=== PATIENT | female | born 1975 | race Two or more races ===

== ENCOUNTER 2024-05-03 14:43 | Inpatient (IN) | payer OTHER ==
[~2024-05-03] VITALS: Ht 175.3 cm; Wt 107.3 kg
[2024-05-03] MEDS ORDERED: SODIUM CHLORIDE 0.9% 1,000 ML IV ONE (15:15)
[2024-05-03] MEDS: SODIUM CHLORIDE 0.9% 1,000 ML IV ONE (15:23)
[2024-05-03] MEDS: ONDANSETRON HCL 4 MG/2 ML VIAL IV ONE ×2 (15:33→20:12)
[2024-05-03] MEDS: KETOROLAC TROMETH 30 MG/ML 1ML VIAL IV ONE (15:33)
[2024-05-03 15:35] LABS: Urine Bacteria FEW /hpf (None Seen); Urine Blood TRACE /uL (Negative); Urine Clarity Clear (Clear); Urine Color Light-Yellow (Yellow); Urine Protein, UAD Negative (Negative); Urine Specific Gravity 1.009 (1.001-1.035); Urine Urobilinogen Normal (Negative); Urine WBC 10 /hpf (0 - 5)
[2024-05-03 15:44] LABS: Basophils # (auto) 0.1 10 ^3/uL (0-0.2); Eosinophils # (auto) 0.2 10 ^3/uL (0-0.8); Eosinophils % (auto) 1.2 % (0.0-7.0); Hemoglobin 13.2 g/dL (12.2-16.2); Lymphocytes # (auto) 2.1 10 ^3/uL (0.4-5.4); Red Blood Cells 5.23 10^6/uL (4.0-5.20)
[2024-05-03 15:45] LABS: Basophils % (auto) 0.4 % (0.0-2.0); Hematocrit 41.7 % (36.0-46.0); Lymphocytes % (auto) 12.2 % (10.0-50.0); Mean Corpuscular Hemoglobin 25.3 pg (28.0-32.0); Mean Corpuscular Hgb Conc. 31.7 g/dL (32.0-36.0); Mean Corpuscular Volume 79.8 fL (80.0-100.0); Monocytes % (auto) 5.9 % (0.0-12.0); Neutrophils # (auto) 13.8 10 ^3/uL (1.6-8.6); Neutrophils % (auto) 80.3 % (37.0-80.0); Red Cell Distribution Width 16.1 % (11.8-14.3); White Blood Cell 17.1 10^3/uL (4.4-10.8)
[2024-05-03 15:59] LABS: Alanine Aminotransferase 35 U/L (7-40); Alkaline Phosphatase 103 U/L (46-116); Anion Gap 5 (5-15); Aspartate Aminotransferase 31 U/L (13-40); Bilirubin, Total 0.5 mg/dL (0.2-1.0); Carbon Dioxide 27 mmol/L (20-30); Chloride 107 mmol/L (98-107); Glucose 91 mg/dL (74-106); Potassium 3.9 mmol/L (3.5-5.1); Sodium 139 mmol/L (136-145); Total Protein 8.1 g/dL (5.7-8.2)
[2024-05-03 16:19] LABS: BUN/Creatinine Ratio 8.2 (10.0-20.0); Blood Urea Nitrogen < 5 mg/dL (9-23)
[2024-05-03 18:45] VITALS: PULSE 83; RESP 13; O2SAT 98
[2024-05-03] MEDS: metroNIDAZOLE 500MG/100ML 100 ML IV ONE (18:51)
[2024-05-03 19:30] VITALS: PULSE 90; RESP 12; O2SAT 97
[2024-05-03] MEDS: cefTRIAXone 1GM/50ML D5W 50 ML IV ONE (20:09)
[2024-05-03] MEDS: MORPHINE SULFATE 4 MG/ML SYR/VIAL IV ONE (20:13)
[2024-05-03] MEDS ORDERED: ACETAMINOPHEN 325 MG TAB PO PRN (21:30)
[2024-05-03] MEDS ORDERED: ONDANSETRON HCL 4 MG/2 ML VIAL IV PRN (21:30)
[2024-05-03] MEDS: PANTOPRAZOLE 40 MG/10 ML VIAL INJ IV ONE (22:31)
[2024-05-03] MEDS: MORPHINE SULFATE INJ 2 MG/ml SYRG IV PRN (22:32)
[2024-05-04] VITALS (9 sets, daily range): BP systolic 109–148; BP diastolic 64–81; PULSE 78–89; RESP 16–20; TEMP 98–98.6; O2SAT 96–100
[2024-05-04] MEDS: TEMAZEPAM 15 MG CAP PO PRN (01:41)
[2024-05-04] MEDS: HYDROcodone-ACET 5/325MG TAB PO PRN (01:42)
[2024-05-04] MEDS: metroNIDAZOLE 500MG/100ML 100 ML IV SCH (03:00)
[2024-05-04 06:06] LABS: Basophils # (auto) 0 10 ^3/uL (0-0.2); Hemoglobin 11.1 g/dL (12.2-16.2); Monocytes # (auto) 1.1 10 ^3/uL (0-1.3); Monocytes % (auto) 8.7 % (0.0-12.0)
[2024-05-04 06:11] LABS: Basophils % (auto) 0.2 % (0.0-2.0); Eosinophils # (auto) 0.2 10 ^3/uL (0-0.8); Hematocrit 34.9 % (36.0-46.0); Lymphocytes # (auto) 2.3 10 ^3/uL (0.4-5.4); Lymphocytes % (auto) 18.8 % (10.0-50.0); Mean Corpuscular Hemoglobin 25.2 pg (28.0-32.0); Mean Corpuscular Hgb Conc. 31.7 g/dL (32.0-36.0); Mean Corpuscular Volume 79.5 fL (80.0-100.0); Neutrophils # (auto) 8.6 10 ^3/uL (1.6-8.6); Neutrophils % (auto) 70.3 % (37.0-80.0); Red Blood Cells 4.39 10^6/uL (4.0-5.20); Red Cell Distribution Width 15.6 % (11.8-14.3); White Blood Cell 12.2 10^3/uL (4.4-10.8)
[2024-05-04 06:20] LABS: Alanine Aminotransferase 24 U/L (7-40); Alkaline Phosphatase 76 U/L (46-116); Anion Gap 10 (5-15); Calcium 9.4 mg/dL (8.7-10.4); Carbon Dioxide 26 mmol/L (20-30); Chloride 108 mmol/L (98-107); Glucose 83 mg/dL (74-106); Potassium 3.6 mmol/L (3.5-5.1); Sodium 144 mmol/L (136-145)
[2024-05-04 06:22] LABS: Albumin 3.9 g/dL (3.2-4.8); Aspartate Aminotransferase 16 U/L (13-40); Bilirubin, Total 0.6 mg/dL (0.2-1.0); Total Protein 6.4 g/dL (5.7-8.2)
[2024-05-04 07:03] LABS: BUN/Creatinine Ratio 8.3 (10.0-20.0); Blood Urea Nitrogen < 5 mg/dL (9-23)
[2024-05-04 08:27] LABS: Hepatitis B Surface Antigen Negative (Negative)
[2024-05-04] MEDS: PANTOPRAZOLE 40 MG/10 ML VIAL INJ IV SCH (08:37)
[2024-05-04 08:48] LABS: Hepatitis C Antibody Negative (Negative)
[2024-05-04] MEDS: metroNIDAZOLE 500 MG TAB PO SCH (13:40)
[2024-05-04] MEDS: SODIUM CHLORIDE 0.9% 1,000 ML IV SCH (15:22)
[2024-05-04] MEDS: cefTRIAXone 1GM/50ML D5W 50 ML IV SCH (20:19)
[2024-05-05 05:00] VITALS: BP 143/89; PULSE 91; RESP 16; TEMP 97.9; O2SAT 96
[2024-05-05 06:27] LABS: Basophils # (auto) 0 10 ^3/uL (0-0.2)
[2024-05-05 06:30] LABS: Basophils % (auto) 0.3 % (0.0-2.0); Eosinophils # (auto) 0.3 10 ^3/uL (0-0.8); Eosinophils % (auto) 2.9 % (0.0-7.0); Hematocrit 34.3 % (36.0-46.0); Hemoglobin 11.2 g/dL (12.2-16.2); Lymphocytes % (auto) 22.2 % (10.0-50.0); Mean Corpuscular Hemoglobin 25.8 pg (28.0-32.0); Mean Corpuscular Hgb Conc. 32.6 g/dL (32.0-36.0); Monocytes # (auto) 0.6 10 ^3/uL (0-1.3); Neutrophils # (auto) 5.9 10 ^3/uL (1.6-8.6); Neutrophils % (auto) 67.6 % (37.0-80.0); Nucleated Red Blood Cells % 0.1 %; Red Blood Cells 4.34 10^6/uL (4.0-5.20); Red Cell Distribution Width 15.3 % (11.8-14.3); White Blood Cell 8.8 10^3/uL (4.4-10.8)
[2024-05-05 06:38] LABS: Alanine Aminotransferase 20 U/L (7-40); Albumin 3.9 g/dL (3.2-4.8); Alkaline Phosphatase 77 U/L (46-116); Anion Gap 6 (5-15); Aspartate Aminotransferase 14 U/L (13-40); BUN/Creatinine Ratio 9.6 (10.0-20.0); Bilirubin, Total 0.5 mg/dL (0.2-1.0); Blood Urea Nitrogen < 5 mg/dL (9-23); Calcium 8.8 mg/dL (8.5-10.1); Carbon Dioxide 25 mmol/L (20-30); Chloride 110 mmol/L (98-107); Glucose 81 mg/dL (74-106); Potassium 3.7 mmol/L (3.5-5.1); Sodium 141 mmol/L (136-145); Total Protein 6.2 g/dL (5.7-8.2)
[2024-05-05 08:00] VITALS: PULSE 85; RESP 18; O2SAT 94
[2024-05-05 09:00] VITALS: BP 125/68; PULSE 85; RESP 18; TEMP 98.2; O2SAT 94
[2024-05-05 13:00] VITALS: BP 155/78; PULSE 79; RESP 20; TEMP 98.1; O2SAT 96
[2024-05-05 17:00] VITALS: BP 142/78; PULSE 80; RESP 18; TEMP 98.2; O2SAT 97
[2024-05-06 04:43] VITALS: BP 123/67; PULSE 76; RESP 16; TEMP 97.9; O2SAT 96
[2024-05-06 08:00] VITALS: PULSE 83; RESP 17; O2SAT 96
[2024-05-06 10:46] VITALS: BP 125/75; PULSE 83; RESP 17; TEMP 98.7; O2SAT 96
[2024-05-06] MEDS ORDERED: MET500T PO (11:57)
[2024-05-06] MEDS ORDERED: AUG875T PO (11:57)
[2024-05-06 13:21] VITALS: BP 142/83; PULSE 88; RESP 17; TEMP 98.6; O2SAT 97
[2024-05-06 13:25] VITALS: BP 142/83; PULSE 88; RESP 17; TEMP 37; O2SAT 97
== END 2024-05-06 16:45 | disposition home or self-care (01) | DRG 872 ==
LOC: ER 14:43 → OVERFLOW 22:58 → WEST WING 05-04 00:18
PROVIDERS: ADMIT Nurse Practitioner; ATTEND Internal Medicine
DX: A41.9 Sepsis, unspecified organism (principal); K57.32 Diverticulitis of large intestine without perforation or abscess without bleeding; N30.01 Acute cystitis with hematuria; E66.9 Obesity, unspecified; Z68.34 Body mass index [BMI] 34.0-34.9, adult; Z79.899 Other long term (current) drug therapy
CPT/HCPCS: 36415; 74176; 80053; 81001; 83605; 85025; 86803; 87040; 87086; 87340; 93005; 96361; 96365; 96367; 96375; 96376; C9113; G0378; J1885; J2405; J3490

== ENCOUNTER → 2024-06-09 | Outpatient (CLI) | payer OTHER ==
[~2024-06-09] MED LIST: AUG875T PO; MET500T PO
[2024-06-09 10:00] LABS: Basophils # (auto) 0.1 10 ^3/uL (0-0.2); Basophils % (auto) 0.8 % (0.0-2.0); Eosinophils # (auto) 0.2 10 ^3/uL (0-0.8); Eosinophils % (auto) 1.9 % (0.0-7.0); Hematocrit 40.2 % (36.0-46.0); Lymphocytes # (auto) 1.8 10 ^3/uL (0.4-5.4); Lymphocytes % (auto) 20.5 % (10.0-50.0); Mean Corpuscular Hemoglobin 25.9 pg (28.0-32.0); Mean Corpuscular Hgb Conc. 32.4 g/dL (32.0-36.0); Mean Corpuscular Volume 79.8 fL (80.0-100.0); Monocytes # (auto) 0.6 10 ^3/uL (0-1.3); Monocytes % (auto) 6.4 % (0.0-12.0); Neutrophils # (auto) 6.1 10 ^3/uL (1.6-8.6); Neutrophils % (auto) 70.4 % (37.0-80.0); Red Blood Cells 5.04 10^6/uL (4.0-5.20); Red Cell Distribution Width 16.4 % (11.8-14.3); White Blood Cell 8.6 10^3/uL (4.4-10.8)
[2024-06-09 10:04] LABS: Urine Bacteria FEW /hpf (None Seen); Urine Blood Negative /uL (Negative); Urine Clarity Turbid (Clear); Urine Color Yellow (Yellow); Urine Mucus FEW (None Seen); Urine Protein, UAD 1+ (Negative); Urine Specific Gravity 1.027 (1.001-1.035); Urine Urobilinogen 2 mg/dL (Negative); Urine WBC 12 /hpf (0 - 5); Urine pH 6.5 (5.0-9.0)
[2024-06-09 10:14] LABS: Alanine Aminotransferase 39 U/L (7-40); Albumin 4.8 g/dL (3.2-4.8); Alkaline Phosphatase 79 U/L (46-116); Anion Gap 7 (5-15); Aspartate Aminotransferase 22 U/L (13-40); BUN/Creatinine Ratio 9.1 (10.0-20.0); Bilirubin, Total 0.6 mg/dL (0.2-1.0); Blood Urea Nitrogen 6 mg/dL (9-23); Calcium 10.1 mg/dL (8.7-10.4); Carbon Dioxide 28 mmol/L (20-30); Chloride 107 mmol/L (98-107); Cholesterol 205 mg/dL (< 200); Glucose 86 mg/dL (74-106); HDL Cholesterol 54 mg/dL (40-59); LDL Cholesterol 133 mg/dL (< 100); Potassium 3.9 mmol/L (3.5-5.1); Sodium 142 mmol/L (136-145); Total Protein 7.4 g/dL (5.7-8.2); Triglycerides 87 mg/dL (< 150)
== END | disposition home or self-care (01) ==
LOC: LAB 09:22
PROVIDERS: ATTEND Internal Medicine
DX: Z13.1 Encounter for screening for diabetes mellitus (principal); K57.32 Diverticulitis of large intestine without perforation or abscess without bleeding; A41.9 Sepsis, unspecified organism; Z00.01 Encounter for general adult medical examination with abnormal findings
CPT/HCPCS: 36415; 80053; 80061; 81001; 83036; 84439; 84443; 85025

== ENCOUNTER → 2024-08-15 | Outpatient (CLI) | payer OTHER ==
[2024-08-15 08:30] LABS: Alanine Aminotransferase 34 U/L (7-40); Albumin 4.6 g/dL (3.2-4.8); Alkaline Phosphatase 79 U/L (46-116); Anion Gap 8 (5-15); Aspartate Aminotransferase 19 U/L (13-40); BUN/Creatinine Ratio 15.9 (10.0-20.0); Blood Urea Nitrogen 10 mg/dL (9-23); Carbon Dioxide 27 mmol/L (20-30); Chloride 107 mmol/L (98-107); Creatine Kinase IFCC 47 U/L (34-145); Glucose 95 mg/dL (74-106); Potassium 4.2 mmol/L (3.5-5.1); Sodium 142 mmol/L (136-145)
[2024-08-15 08:31] LABS: Bilirubin, Total 0.5 mg/dL (0.2-1.0); Total Protein 7.3 g/dL (5.7-8.2)
== END | disposition home or self-care (01) ==
LOC: LAB 07:18
PROVIDERS: ATTEND Internal Medicine
DX: E78.5 Hyperlipidemia, unspecified (principal)
CPT/HCPCS: 36415; 80053; 82550

== ENCOUNTER → 2024-10-23 | Outpatient (CLI) | payer OTHER ==
[2024-10-23 08:21] LABS: Albumin 4.5 g/dL (3.2-4.8); Alkaline Phosphatase 113 U/L (46-116); Anion Gap 9 (5-15); Aspartate Aminotransferase 24 U/L (13-40); BUN/Creatinine Ratio 8.7 (10.0-20.0); Bilirubin, Total 0.8 mg/dL (0.2-1.0); Carbon Dioxide 29 mmol/L (20-31); Chloride 105 mmol/L (98-107); Cholesterol 166 mg/dL (< 200); Glucose 90 mg/dL (74-106); HDL Cholesterol 54 mg/dL (40-59); LDL Cholesterol 95 mg/dL (< 100); Potassium 4.2 mmol/L (3.5-5.1); Sodium 143 mmol/L (136-145); Total Protein 7.3 g/dL (5.7-8.2); Triglycerides 90 mg/dL (< 150)
[2024-10-23 08:22] LABS: Alanine Aminotransferase 47 U/L (7-40); Blood Urea Nitrogen 6 mg/dL (9-23); Calcium 10.4 mg/dL (8.7-10.4)
== END | disposition home or self-care (01) ==
LOC: LAB 07:03
PROVIDERS: ATTEND Internal Medicine
DX: E78.5 Hyperlipidemia, unspecified (principal)
CPT/HCPCS: 36415; 80053; 80061

== ENCOUNTER → 2025-01-05 | Day surgery (SDC) | payer OTHER ==
[2024-12-29 13:45] LABS: Basophils # (auto) 0.1 10 ^3/uL (0-0.2); Eosinophils # (auto) 0.2 10 ^3/uL (0-0.8); Eosinophils % (auto) 1.7 % (0.0-7.0); Hemoglobin 13.5 g/dL (12.2-16.2)
[2024-12-29 13:46] LABS: Basophils % (auto) 0.8 % (0.0-2.0); Lymphocytes % (auto) 21.7 % (10.0-50.0); Mean Corpuscular Hemoglobin 25.8 pg (28.0-32.0); Mean Corpuscular Hgb Conc. 32.2 g/dL (32.0-36.0); Mean Corpuscular Volume 80.3 fL (80.0-100.0); Monocytes # (auto) 0.6 10 ^3/uL (0-1.3); Neutrophils # (auto) 6.4 10 ^3/uL (1.6-8.6); Neutrophils % (auto) 68.8 % (37.0-80.0); Platelet Count (auto) 331 10^3/uL (140-450); Red Blood Cells 5.23 10^6/uL (4.0-5.20); Red Cell Distribution Width 15.6 % (11.8-14.3); White Blood Cell 9.2 10^3/uL (4.4-10.8)
[2024-12-29 14:02] LABS: INR 1.08 (0.9-1.15); Partial Thromboplastin Time 29.3 SEC (24.5-34.5); Prothrombin Time 11.4 sec (9.3-11.8)
[2024-12-29 14:03] LABS: Anion Gap 8 (5-15); Aspartate Aminotransferase 35 U/L (13-40); BUN/Creatinine Ratio 11.8 (10.0-20.0); Bilirubin, Total 0.5 mg/dL (0.2-1.0); Calcium 10.2 mg/dL (8.7-10.4); Carbon Dioxide 28 mmol/L (20-31); Chloride 105 mmol/L (98-107); Glucose 92 mg/dL (74-106); Potassium 4.5 mmol/L (3.5-5.1); Sodium 141 mmol/L (136-145); Total Protein 7.8 g/dL (5.7-8.2)
[2024-12-29 14:06] LABS: Alanine Aminotransferase 56 U/L (7-40); Albumin 5.1 g/dL (3.2-4.8); Alkaline Phosphatase 130 U/L (46-116); Blood Urea Nitrogen 8 mg/dL (9-23)
[~2025-01-05] VITALS: Ht 170.2 cm; Wt 88.5 kg
[~2025-01-05] MED LIST changes: +ATOR20TA PO; -AUG875T PO; +MAGN400T40 OR; +MELA3TAB27 PO; -MET500T PO; +SODIUM CHLORIDE LOCK 10 ML ONE
[2025-01-05 09:30] VITALS: PULSE 91; RESP 16; O2SAT 100
[2025-01-05] MEDS: diphenhdrAMINE HCL 50 MG/1 ML VL ONE (09:33)
[2025-01-05] MEDS: fentaNYL CITRATE 100 MCG/2 ML VL ONE (09:35)
[2025-01-05] MEDS: MIDAZOLAM HCL 5 MG/ML-1ML VIAL ONE (09:35)
[2025-01-05 09:52] VITALS: TEMP 98.2; O2SAT 100
--- NOTE | 2025-01-05 09:52 | DVHOP2 ---
Operative Report DATE OF OPERATION: 01/05/25 PROCEDURE: Colonoscopy with biopsy. PREOPERATIVE INDICATION: The patient is a 49 -year-old female undergoing colonoscopy for history of diverticulitis and personal history of colon polyps last colonoscopy 2014 POSTOPERATIVE DIAGNOSES: 1. Moderate scattered diverticular disease most prominent in the sigmoid area with minimal associated sigmoiditis 2. 1+ internal hemorrhoids with hypertrophied anal papillae otherwise normal examination up to the cecum and terminal ileum PROCEDURE PERFORMED BY: Micky Johnson M.D. SCOPE: Olympus videocolonoscope. ASA CLASS: 2. PREOPERATIVE MEDICATIONS: Versed 5 mg, Fentanyl 100 mcg, Benadryl 50 mg PROCEDURE IN DETAIL: After obtaining an informed consent, the patient was placed on left lateral decubitus position. She was then sedated with the above medications. A rectal examination was performed that was normal. The colonoscope was then passed through the anus into the rectosigmoid and through the descending, transverse, and ascending colon up to the cecum with visualization of the appendiceal orifice, base of the cecum and the ileocecal valve. The colonoscope was then withdrawn. The distal 5 cm of the terminal ileum were normal There were no polyps or masses seen. There was moderate scattered diverticular disease most prominent in the sigmoid There was minimal diverticular associated sigmoiditis from which biopsies were obtained. On retroflexion and straight on view the patient had 1+ internal hemorrhoids with hypertrophied anal papilla The patient tolerated the procedure well without difficulty. WITHDRAWAL TIME: 7 minutes QUALITY OF THE PREP: Hosmer Bowel Prep score: 9. COMPLICATIONS : None SPECIMENS: Sigmoid colon biopsies DISPOSITION: Stable D/C to home PLAN: 1. Repeat colonoscopy in 5-7 years 2. Resume diet 3. Increase fluid and fiber intake 4. Local anorectal hemorrhoidal care 5. Outpatient follow up with me in 4-6 weeks to review results and discuss further management MICKY JOHNSON MD Jan 05, 2025 09:52
[2025-01-05 10:22] VITALS: BP 107/63; PULSE 93; RESP 18; O2SAT 99
== END | disposition home or self-care (01) ==
LOC: GI 08:00
PROVIDERS: ATTEND Internal Medicine Gastroenterology
DX: Z12.11 Encounter for screening for malignant neoplasm of colon (principal); K57.30 Diverticulosis of large intestine without perforation or abscess without bleeding; K64.8 Other hemorrhoids; K52.9 Noninfective gastroenteritis and colitis, unspecified; Z86.0101 Personal history of adenomatous and serrated colon polyps
CPT/HCPCS: 36415; 45380; 80053; 84702; 85025; 85610; 85730; 88305; J1200; J2250; J3010; 99152

== ENCOUNTER → 2025-03-19 | Outpatient (CLI) | payer OTHER ==
[~2025-03-19] MED LIST changes: -SODIUM CHLORIDE LOCK 10 ML ONE
[2025-03-19 14:52] LABS: Basophils # (auto) 0.1 10 ^3/uL (0-0.2); Basophils % (auto) 0.7 % (0.0-2.0); Eosinophils # (auto) 0.1 10 ^3/uL (0-0.8); Eosinophils % (auto) 1.6 % (0.0-7.0); Hematocrit 41.9 % (36.0-46.0); Hemoglobin 13.4 g/dL (12.2-16.2); Lymphocytes # (auto) 1.9 10 ^3/uL (0.4-5.4); Mean Corpuscular Hemoglobin 26.1 pg (28.0-32.0); Mean Corpuscular Hgb Conc. 32.1 g/dL (32.0-36.0); Mean Corpuscular Volume 81.3 fL (80.0-100.0); Monocytes # (auto) 0.5 10 ^3/uL (0-1.3); Neutrophils # (auto) 6.8 10 ^3/uL (1.6-8.6); Neutrophils % (auto) 72.7 % (37.0-80.0); Nucleated Red Blood Cells % 0.1 %; Platelet Count (auto) 273 10^3/uL (140-450); Red Blood Cells 5.15 10^6/uL (4.0-5.20); Red Cell Distribution Width 15.6 % (11.8-14.3); White Blood Cell 9.4 10^3/uL (4.4-10.8)
[2025-03-19 15:06] LABS: Urine Bacteria FEW /hpf (None Seen); Urine Blood Negative /uL (Negative); Urine Clarity Clear (Clear); Urine Color Yellow (Yellow); Urine Mucus FEW (None Seen); Urine Protein, UAD TRACE (Negative); Urine Specific Gravity 1.027 (1.001-1.035); Urine Squamous Epithelial Cell MOD /hpf (<5); Urine Urobilinogen Normal (Negative); Urine WBC 1 /HPF (0-5)
[2025-03-19 15:23] LABS: Alanine Aminotransferase 32 U/L (7-40); Alkaline Phosphatase 102 U/L (46-116); Anion Gap 8 (5-15); Aspartate Aminotransferase 23 U/L (13-40); BUN/Creatinine Ratio 14.1 (10.0-20.0); Bilirubin, Total 0.5 mg/dL (0.2-1.0); Calcium 10.3 mg/dL (8.7-10.4); Carbon Dioxide 30 mmol/L (20-31); Chloride 106 mmol/L (98-107); Cholesterol 155 mg/dL (< 200); Glucose 96 mg/dL (74-106); LDL Cholesterol 80 mg/dL (< 100); Potassium 4.3 mmol/L (3.5-5.1); Sodium 144 mmol/L (136-145); Total Protein 7.7 g/dL (5.7-8.2); Triglycerides 54 mg/dL (< 150)
[2025-03-19 15:24] LABS: Blood Urea Nitrogen 9 mg/dL (9-23); HDL Cholesterol 60 mg/dL (40-59)
== END | disposition home or self-care (01) ==
LOC: LAB 14:27
PROVIDERS: ATTEND Internal Medicine
DX: Z13.1 Encounter for screening for diabetes mellitus (principal); E78.5 Hyperlipidemia, unspecified; E66.9 Obesity, unspecified; Z00.01 Encounter for general adult medical examination with abnormal findings
CPT/HCPCS: 36415; 80053; 80061; 81001; 83036; 84439; 84443; 85025

== ENCOUNTER 2025-04-26 08:33 | Outpatient (CLI) | payer OTHER ==
[2025-04-26 09:31] LABS: Alanine Aminotransferase 39 U/L (7-40); Albumin 4.7 g/dL (3.2-4.8); Alkaline Phosphatase 103 U/L (46-116); Anion Gap 7 (5-15); Aspartate Aminotransferase 29 U/L (13-40); BUN/Creatinine Ratio 18.5 (10.0-20.0); Bilirubin, Total 0.4 mg/dL (0.2-1.0); Blood Urea Nitrogen 12 mg/dL (9-23); Calcium 9.9 mg/dL (8.7-10.4); Carbon Dioxide 27 mmol/L (20-31); Glucose 90 mg/dL (74-106); Potassium 4.4 mmol/L (3.5-5.1); Sodium 143 mmol/L (136-145); Total Protein 7.2 g/dL (5.7-8.2)
[2025-04-26 09:33] LABS: Basophils # (auto) 0.1 10 ^3/uL (0-0.2); Basophils % (auto) 0.7 % (0.0-2.0); Chloride 109 mmol/L (98-107); Eosinophils # (auto) 0.2 10 ^3/uL (0-0.8); Eosinophils % (auto) 2.3 % (0.0-7.0); Hematocrit 39.8 % (36.0-46.0); Hemoglobin 12.9 g/dL (12.2-16.2); Lymphocytes # (auto) 1.8 10 ^3/uL (0.4-5.4); Lymphocytes % (auto) 23.3 % (10.0-50.0); Mean Corpuscular Hemoglobin 26.3 pg (28.0-32.0); Mean Corpuscular Hgb Conc. 32.3 g/dL (32.0-36.0); Mean Corpuscular Volume 81.3 fL (80.0-100.0); Monocytes # (auto) 0.5 10 ^3/uL (0-1.3); Monocytes % (auto) 6.3 % (0.0-12.0); Neutrophils # (auto) 5.3 10 ^3/uL (1.6-8.6); Neutrophils % (auto) 67.4 % (37.0-80.0); Platelet Count (auto) 270 10^3/uL (140-450); Red Blood Cells 4.89 10^6/uL (4.0-5.20); White Blood Cell 7.9 10^3/uL (4.4-10.8)
[2025-04-26 09:34] LABS: Thyroid Stimulating Hormone 1.97 uIU/mL (0.55-4.78)
[2025-04-26 09:40] LABS: Beta HCG, Quantitative 0.9 mIU/mL (1.5-4.2)
[2025-04-26 10:50] LABS: Free T4 (Free Thyroxine) 0.91 ng/dL (0.89-1.76)
[2025-04-26 10:51] LABS: T3 Total 1.15 ng/mL (0.60-1.81)
[2025-04-26 10:52] LABS: Follicle Stimulating Hormone 16.87 IU/L (SEE BELOW)
[2025-04-26 10:53] LABS: Leuteinizing Hormone 19.4 IU/L; Prolactin 10.93 ng/mL (2.8-29.2)
[2025-04-27 08:07] LABS: Thyroxine (T4) 6.7 ug/dL (4.5-12.0)
== END 2025-04-26 17:00 | disposition home or self-care (01) ==
LOC: LAB 08:33
DX: E28.2 Polycystic ovarian syndrome (principal)
CPT/HCPCS: 36415; 80053; 82626; 82670; 83001; 83002; 83036; 84146; 84402; 84403; 84436; 84439; 84443; 84479; 84480; 84702; 85025

== ENCOUNTER → 2025-09-21 | Outpatient (CLI) | payer OTHER ==
[2025-09-21 15:14] LABS: Hemoglobin 12.6 g/dL (12.2-16.2); Nucleated Red Blood Cells % 0.1 %
[2025-09-21 15:15] LABS: Hematocrit 38.9 % (36.0-46.0); Mean Corpuscular Hemoglobin 26.4 pg (28.0-32.0); Mean Corpuscular Volume 81.5 fL (80.0-100.0)
[2025-09-21 15:49] LABS: Alanine Aminotransferase 79 U/L (7-40); Albumin 4.6 g/dL (3.2-4.8); Alkaline Phosphatase 158 U/L (46-116); Anion Gap 7 (5-15); BUN/Creatinine Ratio 13.8 (10.0-20.0); Bilirubin, Total 0.3 mg/dL (0.2-1.0); Blood Urea Nitrogen 9 mg/dL (9-23); Calcium 9.2 mg/dL (8.7-10.4); Carbon Dioxide 30 mmol/L (20-31); Chloride 106 mmol/L (98-107); Glucose 79 mg/dL (74-106); Potassium 4.2 mmol/L (3.5-5.1); Sodium 143 mmol/L (136-145); Total Protein 7.6 g/dL (5.7-8.2)
== END | disposition home or self-care (01) ==
LOC: LAB 14:43
PROVIDERS: ATTEND Internal Medicine
DX: E78.5 Hyperlipidemia, unspecified (principal); R74.8 Abnormal levels of other serum enzymes; R74.01 Elevation of levels of liver transaminase levels
CPT/HCPCS: 36415; 80053; 85025

== ENCOUNTER 2025-11-02 07:22 | Outpatient (CLI) | payer OTHER ==
[2025-11-02 07:56] LABS: Alanine Aminotransferase 36 U/L (7-40); Albumin 4.6 g/dL (3.2-4.8); Alkaline Phosphatase 104 U/L (46-116); Anion Gap 8 (5-15); BUN/Creatinine Ratio 7.2 (10.0-20.0); Calcium 9.8 mg/dL (8.7-10.4); Carbon Dioxide 30 mmol/L (20-31); Chloride 106 mmol/L (98-107); Glucose 92 mg/dL (74-106); Potassium 4.5 mmol/L (3.5-5.1); Sodium 144 mmol/L (136-145); Total Protein 7.8 g/dL (5.7-8.2)
[2025-11-02 07:57] LABS: Bilirubin, Total 0.5 mg/dL (0.2-1.0)
[2025-11-02 07:58] LABS: Blood Urea Nitrogen 5 mg/dL (9-23)
== END 2025-11-02 17:00 | disposition home or self-care (01) ==
LOC: LAB 07:22
PROVIDERS: ATTEND Internal Medicine
DX: R79.89 Other specified abnormal findings of blood chemistry (principal)
CPT/HCPCS: 36415; 80053